=== PATIENT | female | born 1995 | race Caucasian/White ===

== ENCOUNTER 2025-02-14 00:14 | Emergency (ER) | payer OTHER ==
[~2025-02-14] VITALS: Ht 160 cm; Wt 100.0 kg
[~2025-02-14 00:14] MED LIST: ATOR20TA MT; MIDO5TAB4 MT
[2025-02-14 00:19] VITALS: O2SAT 100
[2025-02-14 01:01] LABS: BASOPHILS % 0.1 % (0.0-2.0); EOSINOPHILS % 1.3 % (0.0-5.0); HEMATOCRIT. 41.3 % (36.0-48.0); HEMOGLOBIN. 13.6 g/dL (12.0-16.0); LYMPHOCYTES % 13.7 % (20.0-50.0); MEAN CORPUSCULAR HEMOGLOBIN 27.8 pg (28.0-32.0); MEAN CORPUSCULAR HGB CONC 32.9 g/dL (31.0-37.0); MEAN CORPUSCULAR VOLUME 84.5 fL (81.0-99.0); MEAN PLATELET VOLUME 8.5 fl (7.4-10.4); MONOCYTES % 8.1 % (2.0-8.0); NEUTROPHILS % 76.8 % (40.0-76.0); PLATELET 176 x1000/uL (130-400); RED BLOOD CELL COUNT 4.89 mill/uL (4.2-5.4); WHITE BLOOD COUNT 16.4 x1000/uL (4.5-11.0)
[2025-02-14 01:02] LABS: CARBON DIOXIDE 24 mEq/L (21-32); CHLORIDE 101 mEq/L (98-107); POTASSIUM 3.5 mEq/L (3.5-5.1); SODIUM 136 mEq/L (136-145)
[2025-02-14 01:03] LABS: CALCIUM 9.2 mg/dL (8.7-10.4)
[2025-02-14 01:07] LABS: CREATININE 0.7 mg/dL (0.6-1.0)
[2025-02-14 01:08] LABS: ETHANOL BLOOD < 10 mg/dL (<10); GLUCOSE 124 mg/dL (70-105); UREA NITROGEN BLOOD 14 mg/dL (9-23)
[2025-02-14 01:09] LABS: ALANINE AMINOTRANSFERASE 16 IU/L (10-49); ALBUMIN 4.3 g/dL (3.2-4.8); ASPARTATE AMINOTRANSFERASE 16 IU/L (<34)
[2025-02-14 01:10] LABS: BILIRUBIN DIRECT < 0.1 mg/dL (<=3.0); BILIRUBIN TOTAL 0.4 mg/dL (0.1-1.0); PROTEIN TOTAL 7.7 g/dL (6.0-8.3)
[2025-02-14] MEDS: ACETAMINOPHEN 325MG TABLET PO NR (01:10)
[2025-02-14] MEDS: MAGNESIUM/ALUMINUM HYDROXIDE/SIMETHICONE 30ML UDC PO NR (01:50)
[2025-02-14] MEDS: METHYLPREDNISOLONE SOD SUCC 125MG/2ML (ACT-O-VIAL) IV NR (01:50)
[2025-02-14 02:28] LABS: HCG SCREEN NEGATIVE
[2025-02-14 02:38] LABS: INR 0.9; PROTHROMBIN TIME 10.2 sec (9.6-11.0)
[2025-02-14] MEDS ORDERED: ACET-2708 MT (02:55)
[2025-02-14] MEDS ORDERED: ONDA4TAB50 MT (02:55)
[2025-02-14] MEDS ORDERED: IMOD MT (02:55)
[2025-02-14] MEDS ORDERED: P20 MT (02:55)
[2025-02-14 03:36] VITALS: BP 109/69; PULSE 120; RESP 15; TEMP 36.6; O2SAT 100
== END 2025-02-14 03:53 | disposition home or self-care (01) ==
LOC: ER 00:22
DX: L50.9 Urticaria, unspecified (principal); R10.10 Upper abdominal pain, unspecified; E11.9 Type 2 diabetes mellitus without complications; I10 Essential (primary) hypertension; J45.909 Unspecified asthma, uncomplicated; Z90.49 Acquired absence of other specified parts of digestive tract; Z79.899 Other long term (current) drug therapy; Z88.6 Allergy status to analgesic agent
CPT/HCPCS: 80076; 80048; 80320; 84703; 83690; 85025; 85610; 36415; 74176; 96374; 99285; J2919; G0480